=== PATIENT | female | born 1980 | race Caucasian/White ===

== ENCOUNTER 2018-06-11 22:48 | Emergency (ER) | payer SELFPAY ==
[2018-06-12] MEDS ORDERED: Clindamycin HCl 150 MG Cap PO STA (00:25)
--- NOTE | 2018-06-12 00:40 | EDM.PDOC ---
ED HPI GENERAL MEDICAL PROBLEM - General Chief Complaint: ENT Problem Stated Complaint: [facility] Time Seen by Provider: 06/12/18 00:02 Source of Information: Reports: Patient, Family (), RN Notes Reviewed History Limitations: Reports: No Limitations - History of Present Illness INITIAL COMMENTS - FREE TEXT/NARRATIVE: The patient states that she has had a decayed right lower tooth for about 8 months, with pain on and off since then. She states that an adjacent tooth required extracting about 7 or 8 months ago, however, she states that the dentist refused to extract the other tooth until payment for the first tooth extraction was completed. She states that the remaining tooth has now been hurting for the past 2 or 3 days. No recent fever. She states that she has had oral drainage for the past 2 or 3 days. She states that she has been taking 4 ibuprofen every 6 hours for pain relief. The patient and her smell heavily of alcohol. The patient acknowledges that she had 4 mixed drinks today, to help "kill the pain". The patient does not have a PCP. Right Lower Tooth/Teeth Pain Score (Numeric/FACES): 10 - Related Data Allergies Allergy/AdvReac Type Severity Reaction Status Date / Time amoxicillin Allergy Airway Verified 06/11/18 22:57 Tightness Penicillins Allergy Airway Verified 06/11/18 22:57 Tightness Past Medical History HEENT History: Reports: Other (See Below) Other HEENT History: dental issues Cardiovascular History: Reports: Hypertension (untreated) Endocrine/Metabolic History: Reports: Hypothyroidism (untreated) - Past Surgical History Female Surgical History: Reports: Section (x 4) Social & Family History - Tobacco Use Smoking Status *Q: Current Every Day Smoker Years of Tobacco use: 21 Packs/Tins Daily: 1 - Caffeine Use Caffeine Use: Reports: Coffee, Soda - Alcohol Use Alcohol Use History: Yes Alcohol Use Frequency: Socially - Recreational Drug Use Recreational Drug Use: No - Living Situation & Occupation Living situation: Reports: , with Spouse Occupation: Unemployed ED ROS ENT - Review of Systems Review Of Systems: ROS reveals no pertinent complaints other than HPI. ED EXAM, ENT - Physical Exam Exam: See Below Exam Limited By: No Limitations General Appearance: Alert, WD/WN, No Apparent Distress Eye Exam: Bilateral Eye: EOMI, Normal Inspection Ears: Normal External Exam, Normal Canal, Hearing Grossly Normal, Normal TMs Nose: Normal Inspection, Normal Mucousa, No Blood Mouth/Throat: Normal Lips, Normal Oropharynx, Other (Tooth #1 absent. Teeth #2, 3, 4, 5 with fillings. Teeth #12, 13, 14 with fillings. Teeth #15, 16 absent. Teeth #17, 18 absent. Teeth #19, 20, 21 with fillings. Tooth #30 with fillings. Tooth #31 (the tooth of concern) with extensive decay to the gingiva, but no associated gingival swelling or pointing. Tooth #32 absent.) Head: Atraumatic, Normocephalic Neck: Normal Inspection, Supple, Non-Tender, Full Range of Motion. No: Lymphadenopathy (L), Lymphadenopathy (R) Course - Vital Signs Last Recorded V/S: Last Vital Signs Temp 36.8 C 06/11/18 22:51 Pulse 82 06/11/18 22:51 Resp 20 06/11/18 22:51 BP 162/96 H 06/11/18 22:51 Pulse Ox 93 L 06/11/18 22:51 - Orders/Labs/Meds Meds: Medications Discontinued Medications Generic Name Dose Route Start Last Admin Trade Name Anshulq PRN Reason Stop Dose Admin Clindamycin HCl 450 mg 06/12/18 00:25 Cleocin PO 06/12/18 00:26 ONETIME STA - Re-Assessments/Exams Free Text/Narrative Re-Assessment/Exam: 06/12/18 00:33 Tooth #31 is deeply carious to the gingiva, however, I do not see associated gingival swelling or pointing suggesting an abscess. Nevertheless, I think it would be prudent to treat the patient with clindamycin (she is allergic to penicillin), but I explained that antibiotics alone will not solve his problem, that she needs to see a dentist and have the tooth extracted. The patient will be provided with a list of local dentists, one of whom she will perhaps be able to make a payment plan with. In the meantime, I am recommending that she continue to take [id number] ibuprofen, with food. 06/12/18 00:40 I cannot electronically send a single prescription for clindamycin 450 mg Q8 - I would need to send 2 separate prescriptions, one for 150 mg, another for 300 mg, which may get misinterpreted. I have therefore handwritten a prescription which will be given to the patient. Departure - Departure Time of Disposition: 00:35 Disposition: Home, Self-Care 01 Condition: Fair Clinical Impression: Dental infection, Dentalgia - Discharge Information *PRESCRIPTION DRUG MONITORING PROGRAM REVIEWED*: No *COPY OF PRESCRIPTION DRUG MONITORING REPORT IN PATIENT BENITA: No Additional Instructions: You were seen in the emergency room for a recurrent lower right toothache. On examination, you have extensive decay of tooth #31. You have been started on the antibiotic clindamycin and you have been given a prescription for 10 day course. Take a total of 450 mg every 8 hours, as prescribed. Continue to take [id number] ibuprofen, 3-4 tablets (600-800 mg) every 8 hours, with food, as needed for pain. As discussed, alcohol is not a pain reliever. Do not drink alcohol to kill your pain. As discussed, antibiotics alone will not get rid of your tooth infection. You need to see a dentist and have the tooth extracted. You have been provided with a list of local dentists. We recommend that you call each and every one of them to see if you can arrange to make a payment plan. If any other problems, please do not hesitate to return to the ER.
== END 2018-06-12 00:58 | disposition home or self-care (01) ==
LOC: JD.ED 22:48 → EDBD 22:48 → JD.ED 06-12 00:58
DX: K04.7 Periapical abscess without sinus (principal); K06.8 Other specified disorders of gingiva and edentulous alveolar ridge; I10 Essential (primary) hypertension; E03.9 Hypothyroidism, unspecified; F17.210 Nicotine dependence, cigarettes, uncomplicated; Z88.0 Allergy status to penicillin; Z88.1 Allergy status to other antibiotic agents
CPT/HCPCS: 99284; A9270; 99283

== ENCOUNTER 2019-11-23 11:02 | Emergency (ER) | payer SELFPAY ==
[2019-11-23] MEDS ORDERED: Sodium Chloride 0.9% 10 ML Syringe FLUSH PRN (11:46)
--- NOTE | 2019-11-23 11:53 | EDM.PDOC ---
ED HPI GENERAL MEDICAL PROBLEM - General Chief Complaint: ALGORITHM DEVELOPER Problem Stated Complaint: HEAVY VAGINAL BLEEDING Time Seen by Provider: 11/23/19 11:11 Source of Information: Reports: Patient History Limitations: Reports: No Limitations - History of Present Illness INITIAL COMMENTS - FREE TEXT/NARRATIVE: Patient is a 39-year-old female who presents with complaints of heavy vaginal bleeding that started yesterday. She states initially she had some fairly significant cramping associated with this bleeding. Cramping was present this morning, however is no longer present. She states that the bleeding is light at times, however when she uses the bathroom she states that she has passed a number of "golf ball sized "clots. Patient does not use pads, so she is unable to say how many she has saturated or how long it takes her to saturate a pad. Patient uses toilet paper to absorb her menses. She states that the bleeding has not been severe enough to completely soak the toilet paper, however whenever she uses the bathroom she has a significant increase in bleeding. Patient states that her last menstrual period ended approximately a week and a half ago. She states that over the last 4 to 5 months, her periods have been irregular. Prior to this she went for period of approximately 5 months without having a period. For most of her life, she has been otherwise regular with her periods. She has a history of bilateral tubal ligation. She does not have a raking machine operator. Last time she saw raking machine operator was with the of her youngest child which was approximately 5 years ago. She verbalized that she has a history of hypothyroidism, however she is not taking medications for it. She denies any dizziness upon standing. 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: Endocrine/Metabolic History: Reports: Hypothyroidism Other Endocrine/Metabolic History: unable to fill medications - Past Surgical History Female Surgical History: Reports: Section, Tubal Ligation Social & Family History - Tobacco Use Smoking Status *Q: Never Smoker - Caffeine Use Caffeine Use: Reports: None - Recreational Drug Use Recreational Drug Use: No - Living Situation & Occupation Living situation: Reports: , with Spouse Occupation: Unemployed ED ROS GENERAL - Review of Systems Review Of Systems: See Below Constitutional: Denies: Fever, Chills HEENT: Reports: No Symptoms Respiratory: Reports: No Symptoms Cardiovascular: Reports: No Symptoms. Denies: Chest Pain, Dyspnea on Exertion, Lightheadedness, Palpitations Endocrine: Reports: No Symptoms GI/Abdominal: Reports: No Symptoms : Reports: Irregular Menses, Other (Suprapubic cramping). Denies: Dysuria, Frequency Musculoskeletal: Reports: No Symptoms Skin: Reports: No Symptoms Neurological: Reports: No Symptoms. Denies: Dizziness, Headache, Syncope Psychiatric: Reports: No Symptoms Hematologic/Lymphatic: Reports: No Symptoms Immunologic: Reports: No Symptoms ED EXAM, RENAL/ - Physical Exam Exam: See Below Exam Limited By: No Limitations General Appearance: Alert, WD/WN, No Apparent Distress Respiratory/Chest: No Respiratory Distress, Lungs Clear, Normal Breath Sounds, No Accessory Muscle Use, Chest Non-Tender Cardiovascular: Normal Peripheral Pulses, Regular Rate, Rhythm, No Edema, No Gallop, No JVD, No Murmur, No Rub GI/Abdominal: Normal Bowel Sounds, Soft, Non-Tender, No Organomegaly, No Distention, No Abnormal Bruit, No Mass Extremities: Normal Inspection, Normal Range of Motion, Non-Tender, Normal Capillary Refill, No Pedal Edema Neurological: Alert, Oriented, CN II-XII Intact, Normal Cognition, Normal Gait, Normal Reflexes, No Motor/Sensory Deficits Psychiatric: Normal Affect, Normal Mood Skin Exam: Warm, Dry, Intact, Normal Color, No Rash Course - Vital Signs Last Recorded V/S: Last Vital Signs Temp 97.9 F 11/23/19 11:10 Pulse 100 11/23/19 11:10 Resp 20 11/23/19 11:10 BP 175/102 H 11/23/19 11:10 Pulse Ox 98 11/23/19 11:10 Orthostatic Blood Pressure [ 163/100 Standing] Orthostatic Blood Pressure [ 172/99 Sitting] Orthostatic Blood Pressure [ 168/94 Supine] - Orders/Labs/Meds Orders: Active Orders 24 hr Category Date Time Status Orthostatic Vital Signs [RC] ASDIRECTED Care 11/23/19 11:19 Active Peripheral IV Care [RC] . DIRECTED Care 11/23/19 11:46 Active Sodium Chloride 0.9% [Normal Saline] 1,000 ml Med 11/23/19 12:00 Active IV ASDIRECTED Sodium Chloride 0.9% [Saline Flush] Med 11/23/19 11:46 Active 10 ml FLUSH ASDIRECTED PRN Peripheral IV Insertion Adult [OM.PC] Stat Oth 11/23/19 11:46 Ordered Medication Orders Sodium Chloride (Normal Saline) 1,000 mls @ 999 mls/hr IV ASDIRECTED FABIOLA Last Admin: 11/23/19 12:05 Dose: 999 mls/hr Sodium Chloride (Saline Flush) 10 ml FLUSH ASDIRECTED PRN PRN Reason: Keep Vein Open Last Admin: 11/23/19 12:06 Dose: 10 ml Labs: Laboratory Tests 11/23/19 11/23/19 11/23/19 Range/Units 12:05 12:05 12:05 WBC 9.21 (3.98-10.04) K/mm3 RBC 4.34 (3.98-5.22) M/mm3 Hgb 14.3 (11.2-15.7) gm/dl Hct 43.6 (34.1-44.9) % MCV 100.5 H (79.4-94.8) fl MCH 32.9 H (25.6-32.2) pg MCHC 32.8 (32.2-35.5) g/dl RDW Std Deviation 45.7 (36.4-46.3) fL Plt Count 238 (182-369) K/mm3 MPV 10.9 (9.4-12.3) fl Neut % (Auto) 73.1 H (34.0-71.1) % Lymph % (Auto) 20.5 (19.3-51.7) % [place] % (Auto) 4.7 (4.7-12.5) % Eos % (Auto) 1.3 (0.7-5.8) Baso % (Auto) 0.3 (0.1-1.2) % Neut # (Auto) 6.73 H (1.56-6.13) K/mm3 Lymph # (Auto) 1.89 (1.18-3.74) K/mm3 [place] # (Auto) 0.43 H (0.24-0.36) K/mm3 Eos # (Auto) 0.12 (0.04-0.36) K/mm3 Baso # (Auto) 0.03 (0.01-0.08) K/mm3 Sodium 140 (136-145) mEq/L Potassium 4.1 (3.5-5.1) mEq/L Chloride 105 (98-107) mEq/L Carbon Dioxide 25 (21-32) mEq/L Anion Gap 14.1 (5-15) BUN 13 (7-18) mg/dL Creatinine 0.7 (0.55-1.02) mg/dL Est Cr Clr Drug Dosing 86.18 mL/min Estimated GFR (MDRD) > 60 (>60) mL/min BUN/Creatinine Ratio 18.6 H (14-18) Glucose 100 (74-106) mg/dL Calcium 9.0 (8.5-10.1) mg/dL Total Bilirubin 0.2 (0.2-1.0) mg/dL AST 13 L (15-37) U/L ALT 26 (14-59) U/L Alkaline Phosphatase 85 (46-116) U/L Total Protein 6.5 (6.4-8.2) g/dl Albumin 2.9 L (3.4-5.0) g/dl Globulin 3.6 gm/dL Albumin/Globulin Ratio 0.8 L (1-2) Free T4 (0.76-1.46) ng/dL TSH 3rd Generation 18.677 H (0.358-3.74) uIU/mL HCG, Qual Negative (NEGATIVE) Urine Color (Yellow) Urine Appearance (Clear) Urine pH (5.0-8.0) Ur Specific [place] (1.005-1.030) Urine Protein (Negative) Urine Glucose (UA) (Negative) Urine Ketones (Negative) Urine Occult Blood (Negative) Urine Nitrite (Negative) Urine Bilirubin (Negative) Urine Urobilinogen (0.2-1.0) Ur Leukocyte Esterase (Negative) Urine RBC (0-5) /hpf Urine WBC (0-5) /hpf Ur Squamous Epith Cells (0-5) /hpf Urine Bacteria (FEW) /hpf Urine Mucus (FEW) /hpf 11/23/19 11/23/19 Range/Units 12:05 14:00 WBC (3.98-10.04) K/mm3 RBC (3.98-5.22) M/mm3 Hgb (11.2-15.7) gm/dl Hct (34.1-44.9) % MCV (79.4-94.8) fl MCH (25.6-32.2) pg MCHC (32.2-35.5) g/dl RDW Std Deviation (36.4-46.3) fL Plt Count (182-369) K/mm3 MPV (9.4-12.3) fl Neut % (Auto) (34.0-71.1) % Lymph % (Auto) (19.3-51.7) % [place] % (Auto) (4.7-12.5) % Eos % (Auto) (0.7-5.8) Baso % (Auto) (0.1-1.2) % Neut # (Auto) (1.56-6.13) K/mm3 Lymph # (Auto) (1.18-3.74) K/mm3 [place] # (Auto) (0.24-0.36) K/mm3 Eos # (Auto) (0.04-0.36) K/mm3 Baso # (Auto) (0.01-0.08) K/mm3 Sodium (136-145) mEq/L Potassium (3.5-5.1) mEq/L Chloride (98-107) mEq/L Carbon Dioxide (21-32) mEq/L Anion Gap (5-15) BUN (7-18) mg/dL Creatinine (0.55-1.02) mg/dL Est Cr Clr Drug Dosing mL/min Estimated GFR (MDRD) (>60) mL/min BUN/Creatinine Ratio (14-18) Glucose (74-106) mg/dL Calcium (8.5-10.1) mg/dL Total Bilirubin (0.2-1.0) mg/dL AST (15-37) U/L ALT (14-59) U/L Alkaline Phosphatase (46-116) U/L Total Protein (6.4-8.2) g/dl Albumin (3.4-5.0) g/dl Globulin gm/dL Albumin/Globulin Ratio (1-2) Free T4 0.63 L (0.76-1.46) ng/dL TSH 3rd Generation (0.358-3.74) uIU/mL HCG, Qual (NEGATIVE) Urine Color Yellow (Yellow) Urine Appearance Clear (Clear) Urine pH 6.5 (5.0-8.0) Ur Specific [place] 1.020 (1.005-1.030) Urine Protein 2+ H (Negative) Urine Glucose (UA) Negative (Negative) Urine Ketones Negative (Negative) Urine Occult Blood 2+ H (Negative) Urine Nitrite Negative (Negative) Urine Bilirubin Negative (Negative) Urine Urobilinogen 0.2 (0.2-1.0) Ur Leukocyte Esterase Negative (Negative) Urine RBC 5-10 H (0-5) /hpf Urine WBC Not seen (0-5) /hpf Ur Squamous Epith Cells 0-5 (0-5) /hpf Urine Bacteria Rare (FEW) /hpf Urine Mucus Not seen (FEW) /hpf Meds: Medications Generic Name Dose Route Start Last Admin Trade Name Freq PRN Reason Stop Dose Admin Sodium Chloride 1,000 mls @ 999 mls/hr 11/23/19 12:00 11/23/19 12:05 Normal Saline IV 999 mls/hr ASDIRECTED FABIOLA Administration Sodium Chloride 10 ml 11/23/19 11:46 11/23/19 12:06 Saline Flush FLUSH 10 ml ASDIRECTED PRN Administration Keep Vein Open - Re-Assessments/Exams Free Text/Narrative Re-Assessment/Exam: 11/23/19 14:50 Hematology was significant for a TSH elevated at 18.677 as well as a free T4 low at 0.63. Hemoglobin was normal at 14.3. hCG was negative. Patient was not orthostatic. Urinalysis was negative for any infection. Transvaginal ultrasound showed a 5.3 cm cyst within the peripheral thick septation of the left ovary, as well as nabothian cysts. Endometrial thickness was found to be 1.8 cm which is in the upper limits of normal. Patient has had no further pelvic cramping and has not been passing clots since her arrival to ER. We will start the patient on levothyroxine daily today. I have scheduled her an appointment with Dr. Travis, ALGORITHM DEVELOPER at 830 on Tuesday morning for follow-up regarding her abnormal uterine bleeding. Discharge instructions as documented. Departure - Departure Time of Disposition: 14:50 Disposition: Home, Self-Care 01 Condition: Fair Clinical Impression: Abnormal uterine bleeding - Discharge Information *PRESCRIPTION DRUG MONITORING PROGRAM REVIEWED*: No *COPY OF PRESCRIPTION DRUG MONITORING REPORT IN PATIENT BENITA: No Prescriptions: Levothyroxine 150 mcg PO ACBREAKFAST #30 tab Instructions: Abnormal Uterine Bleeding, [id number] Referrals: Yared Travis MD [Physician] - Forms: ED Department Discharge Additional Instructions: You were seen in the emergency department today for abnormal vaginal bleeding that started yesterday. Your work-up included blood work, urinalysis, and a pelvic ultrasound. You were found to be in a hypothyroid state. Your blood work was otherwise normal. Urinalysis was negative for any infection. Ultrasound of your pelvis did show a 5.3 cm cyst in the left ovary as well as nabothian cysts. Ultrasound was otherwise normal. A prescription for levothyroxine has been sent to [facility]. Take this medication daily. I also recommend that you switch to using pads to keep better track of the amount of your bleeding. An appointment has been scheduled for you with Dr. Travis in [facility] for November 25 at 8:30 AM. Recommend that you keep this appointment for follow-up on your bleeding and further management of your hypothyroidism. If you should saturate 1 pad an hour for more than 2 hours, we would recommend that you return to the emergency department to be reevaluated. If you experience any worsening symptoms of concern, please do not hesitate to return to the emergency department. Sepsis Event Note - Evaluation Sepsis Screening Result: No Definite Risk - Focused Exam Vital Signs: Vital Signs Temp Pulse Resp BP Pulse Ox 11/23/19 11:10 97.9 F 100 20 175/102 H 98 Date Exam was Performed: 11/23/19 Time Exam was Performed: 14:50 - My Orders Last 24 Hours: My Active Orders 11/23/19 11:19 Orthostatic Vital Signs [RC] ASDIRECTED 11/23/19 11:46 Peripheral IV Care [RC] . DIRECTED Sodium Chloride 0.9% [Saline Flush] 10 ml FLUSH ASDIRECTED PRN Peripheral IV Insertion Adult [OM.PC] Stat 11/23/19 12:00 Sodium Chloride 0.9% [Normal Saline] 1,000 ml IV ASDIRECTED - Assessment/Plan Last 24 Hours: My Active Orders 11/23/19 11:19 Orthostatic Vital Signs [RC] ASDIRECTED 11/23/19 11:46 Peripheral IV Care [RC] . DIRECTED Sodium Chloride 0.9% [Saline Flush] 10 ml FLUSH ASDIRECTED PRN Peripheral IV Insertion Adult [OM.PC] Stat 11/23/19 12:00 Sodium Chloride 0.9% [Normal Saline] 1,000 ml IV ASDIRECTED
[2019-11-23] MEDS ORDERED: Sodium Chloride 0.9% 1,000 ML IV SCH (12:00)
--- NOTE | 2019-11-23 13:59 | US ---
Pelvic ultrasound: Multiple real-time images were obtained transvaginally. Transabdominal images were also obtained. Comparison: No prior pelvic imaging is available. Uterus is anteverted. Nabothian cysts are present. No myometrial abnormality is seen. Endometrial thickness is 1.8 cm which is at the upper limits of normal. Left ovary shows a cyst measuring 5.3 cm x 3.9 x 4.7 cm which shows a thickened peripheral septation. Right ovary not optimally seen but felt to be without definite cyst. No free fluid is seen. Measurements: Uterus: Length 11.0 cm, AP height is 4.9 cm, transverse width is 5.9 cm Right ovary: 3.0 x 1.4 x 1.8 cm Left ovary (includes previously described cyst): 5.3 x 3.9 x 4.7 cm Additional images of the right lower abdomen were obtained. No definite visualization of the appendix is appreciated. Impression: 1. 5.3 cm cyst with a peripheral thick septation within the left ovary. 2. Nabothian cysts. 3. Endometrial thickness of 1.8 cm which is at the upper limits of normal. 4. Appendix not definitely visualized. Note: Recommend follow-up ultrasound study in 3-4 months to hopefully confirm left ovarian cyst resolution. Diagnostic code #3 Study was dictated in [place] Standard Time
== END 2019-11-23 15:16 | disposition home or self-care (01) ==
LOC: JD.ED 11:02
DX: N93.9 Abnormal uterine and vaginal bleeding, unspecified (principal); E03.9 Hypothyroidism, unspecified; I10 Essential (primary) hypertension; Z88.1 Allergy status to other antibiotic agents; Z88.0 Allergy status to penicillin; Z79.899 Other long term (current) drug therapy
CPT/HCPCS: 36415; 76830; 80053; 81001; 84439; 84443; 84703; 85025; 96360; 96361; 99284; J7030